=== PATIENT | male | born 2000 | race American Indian/Alaskan Native ===

== ENCOUNTER 2023-09-09 13:28 | Emergency (ER) | payer SELFPAY ==
[2023-09-09] MEDS ORDERED: FOLIC ACID 1 MG, MULTIVITAMINS INJ 10 ML, THIAMINE HCL 100 MG in NA CHLORIDE 0.9% 1,000 ML IV ONE (14:00)
[2023-09-09] MEDS ORDERED: ONDANSETRON 4 MG/2 ML VIAL ONE (14:15)
[2023-09-09 14:18] LABS: Absolute Lymphocytes (CBC) 1.1 K/uL (0.7-4.9); Hematocrit 45.8 % (39.6-49.0); MCV 89.5 fL (80-100); MPV 7.6 fL (7.6-11.3); Platelets 350 thou/uL (152-406); RBC Red Blood Cell Count 5.12 M/uL (4.33-5.43)
[2023-09-09 14:29] LABS: Potassium 3.2 mEq/L (3.5-5.1)
[2023-09-09] MEDS ORDERED: POTASSIUM 25 MEQ EFFERV TAB ONE (14:44)
--- NOTE | 2023-09-09 15:25 | ER ---
Nurse's Notes [facility] Name: Clifford Keith Age: 23 yrs Sex: Male : 2000 Arrival Date: 09/09/2023 Time: 13:28 Bed 8 Private MD: Diagnosis: Nausea with vomiting, unspecified Presentation: 09/09 13:41 Chief complaint: Patient states: has been drinking ETOH X 3 days , can't keep anything iw down today. Coronavirus screen: At this time, the client does not indicate any symptoms associated with coronavirus-19. Ebola Screen: Patient negative for fever greater than or equal to 101.5 degrees Fahrenheit, and additional compatible Ebola Virus Disease symptoms Patient denies exposure to infectious person. Patient denies travel to an Ebola-affected area in the 21 days before illness onset. No symptoms or risks identified at this time. Initial Sepsis Screen: Does the patient meet any 2 criteria? No. Patient's initial sepsis screen is negative. Does the patient have a suspected source of infection? No. Patient's initial sepsis screen is negative. Risk Assessment: Do you want to hurt yourself or someone else? Patient reports no desire to harm self or others. Onset of symptoms was September 09, 2023. 13:41 Method Of Arrival: Ambulatory iw 13:41 Acuity: BECKY 3 iw Historical: - Allergies: 13:42 No Known Allergies; iw - Home Meds: 13:42 None [Active]; iw - PMHx: 13:41 Hypertensive disorder; iw - PSHx: 13:42 None; iw - Immunization history:: Adult Immunizations unknown. - Social history:: Smoking status: Patient denies any tobacco usage or history of. Patient uses alcohol, on a daily basis. 3 tall can of beer on weekdays, liquor on weekends . Screenin:50 [facility] ED Fall Risk Assessment (Adult) History of falling in the last 3 months, ko1 including since admission No falls in past 3 months (0 pts) Confusion or Disorientation No (0 pts) Intoxicated or Sedated No (0 pts) Impaired Gait No (0 pts) Mobility Assist Device Used No (0 pt) Altered Elimination No (0 pt) Score/Fall Risk Level 0 - 2 = Low Risk Oriented to surroundings, Maintained a safe environment, Educated pt \T\ family on fall prevention, incl call for assistance when getting out of bed, Assessed \T\ reinforced patient's understanding of fall precautions, Provided non-skid footwear, Hourly rounding (assess needs \T\ fall precautionary measures) done, Used ambulatory aids as needed (educated on \T\ assisted with), Used gait belt as appropriate. Abuse screen: Denies threats or abuse. Denies injuries from another. Nutritional screening: No deficits noted. Tuberculosis screening: No symptoms or risk factors identified. Assessment: 13:50 General: Appears in no apparent distress. comfortable, Behavior is calm, cooperative, ko1 appropriate for age. Pain: Complains of pain in abdomen. Neuro: No deficits noted. Cardiovascular: No deficits noted. Respiratory: No deficits noted. GI: Bowel sounds present X 4 quads. Abd is soft and non tender X 4 quads. Reports upper abdominal pain, nausea, vomiting. : No deficits noted. EENT: No deficits noted. Derm: No deficits noted. Musculoskeletal: No deficits noted. Vital Signs: 13:41 BP 178 / 110; Pulse 116; Resp 18; Temp 99.1; Pulse Ox 100% on R/A; Weight 81.65 kg; iw Height 5 ft. 10 in. ; 13:50 BP 164 / 98; Pulse 106; Resp 18; Pulse Ox 100% ; ko1 15:42 BP 137 / 88; Pulse 84; Resp 16; Pulse Ox 99% ; ko1 13:41 Body Mass Index 25.83 (81.65 kg, 177.8 cm) iw ED Course: 13:35 Patient arrived in ED. mg5 13:37 [facility] FNP [facility] 7 13:37 Cem Snowden MD is Attending Physician. [facility] 13:41 Triage completed. iw 13:42 Arm band placed on. iw 13:50 Patient has correct armband on for positive identification. Bed in low position. Call ko1 light in reach. Side rails up X 1. Provided Education on: na. Pulse ox on. NIBP on. Door closed. Noise minimized. Lights dimmed. 13:55 Missed attempt(s): 20 gauge in left antecubital area. Bleeding controlled, band aid iw applied, catheter tip intact. 14:00 Inserted saline lock: 18 gauge in right antecubital area, using aseptic technique. iw Blood collected. 14:19 Annelise Moreland, RN is Primary Nurse. ko1 15:42 No provider procedures requiring assistance completed. IV discontinued, intact, ko1 bleeding controlled, No redness/swelling at site. Pressure dressing applied. Administered Medications: 14:06 Drug: Ondansetron IVP 4 mg IVP once; over 2 minutes Route: IVP; Site: right antecubital;ko1 14:35 Drug: Potassium PO Effervescent Tablet 50 mEq PO once; dissolve in 4 ounces of water or ko1 juice Route: PO; 14:45 Drug: Banana Bag - (Multivitamin IV 1 amp, NS 0.9% IV 1000 ml, Thiamine IV 100 mg, ko1 foLIC Acid IVPB 1 mg) IV at calculated rate once Route: IV; Rate: calculated rate; Site: right antecubital; Medication: 15:42 VIS not applicable for this client. ko1 Outcome: 15:[address] ordered [address] . [facility] 15:42 Discharged to home ambulatory, ko1 15:42 Condition: stable 15:42 Discharge instructions given to patient, Instructed on discharge instructions, follow up and referral plans. medication usage, Demonstrated understanding of instructions, follow-up care, medications, Prescriptions given X 1, 15:43 Patient left the ED. ko1 Signatures: Subha Olsen RN RN Robyn Peña, KAREN [place] [id number] Annelise Moreland, RN RN ko1 Yanelis Blakely mg5 Corrections: (The following items were deleted from the chart) 13:42 13:41 BP 178 / 110; Pulse 116bpm; Resp 18bpm; Pulse Ox 100% RA; iw iw 13:44 13:41 Chief complaint: Patient states: has been drinking ETOH X 3 days , can't keep iw anything down today iw
--- NOTE | 2023-09-09 15:25 | EDPHYS ---
Physician Documentation [facility] Name: Clifford Keith Age: 23 yrs Sex: Male : 2000 Arrival Date: 09/09/2023 Time: 13:28 Bed 8 Private MD: ED Physician Cem Snowden HPI: 09/09 13:45 This 23 yrs old Male presents to ER via Ambulatory with complaints of jh7 abdominal cramping, Nausea, vomiting. 13:45 23-year-old male states that he has been drinking alcohol over the past 3 days, and jh7 started vomiting today. Reports that his last drink was at 11 PM. Denies history of alcoholism. History of hypertension. Patient calm and alert in triage.. Historical: - Allergies: 13:42 No Known Allergies; iw - Home Meds: 13:42 None [Active]; iw - PMHx: 13:41 Hypertensive disorder; iw - PSHx: 13:42 None; iw - Immunization history:: Adult Immunizations unknown. - Social history:: Smoking status: Patient denies any tobacco usage or history of. Patient uses alcohol, on a daily basis. 3 tall can of beer on weekdays, liquor on weekends . ROS: 13:45 Constitutional: Negative for fever, chills, and weight loss, Eyes: Negative for injury, jh7 pain, redness, and discharge, Cardiovascular: Negative for chest pain, palpitations, and edema, Respiratory: Negative for shortness of breath, cough, wheezing, and pleuritic chest pain, Back: Negative for injury and pain, MS/Extremity: Negative for injury and deformity, Skin: Negative for injury, rash, and discoloration, Neuro: Negative for headache, weakness, numbness, tingling, and seizure, 13:45 Abdomen/GI: Positive for nausea and vomiting, abdominal cramps, Negative for diarrhea, constipation, 13:45 All other systems are negative, Exam: 13:45 Constitutional: This is a well developed, well nourished patient who is awake, alert, jh7 and in no acute distress. Head/Face: Normocephalic, atraumatic. Neck: Trachea midline, no thyromegaly or masses palpated, and no cervical lymphadenopathy. Supple, full range of motion without nuchal rigidity, or vertebral point tenderness. No Meningismus. Cardiovascular: Regular rate and rhythm with a normal S1 and S2. No gallops, murmurs, or rubs. Normal PMI, no JVD. No pulse deficits. Respiratory: Lungs have equal breath sounds bilaterally, clear to auscultation and percussion. No rales, rhonchi or wheezes noted. No increased work of breathing, no retractions or nasal flaring. Back: No spinal tenderness. No costovertebral tenderness. Full range of motion. Skin: Warm, dry with normal turgor. Normal color with no rashes, no lesions, and no evidence of cellulitis. MS/ Extremity: Pulses equal, no cyanosis. Neurovascular intact. Full, normal range of motion. Neuro: Awake and alert, GCS 15, oriented to person, place, time, and situation. Cranial nerves II-XII grossly intact. Motor strength 5/5 in all extremities. Sensory grossly intact. Cerebellar exam normal. Normal gait. 13:45 Abdomen/GI: Inspection: abdomen appears normal, Bowel sounds: normal, Palpation: abdomen is soft and non-tender, Vital Signs: 13:41 BP 178 / 110; Pulse 116; Resp 18; Temp 99.1; Pulse Ox 100% on R/A; Weight 81.65 kg; iw Height 5 ft. 10 in. ; 13:50 BP 164 / 98; Pulse 106; Resp 18; Pulse Ox 100% ; ko1 15:42 BP 137 / 88; Pulse 84; Resp 16; Pulse Ox 99% ; ko1 13:41 Body Mass Index 25.83 (81.65 kg, 177.8 cm) iw MDM: 13:37 Patient medically screened. [facility] 15:36 Differential diagnosis: Nausea and vomiting secondary to EtOH consumption. Data [facility] reviewed: vital signs, nurses notes, lab test result(s). I considered the following discharge prescriptions or medication management in the emergency department Medications were administered in the Emergency Department. See MAR. Care significantly affected by the following chronic conditions: Hypertension. Counseling: I had a detailed discussion with the patient and/or guardian regarding the historical points, exam findings, and any diagnostic results supporting the discharge/admit diagnosis, to return to the emergency department if symptoms worsen or persist or if there are any questions or concerns that arise at home. Response to treatment: the patient's symptoms have markedly improved after treatment. 09/09 13:43 Order name: CBC with Diff; Complete Time: 14:29 [facility] 09/09 13:43 Order name: BMP; Complete Time: 14:29 7 Administered Medications: 14:06 Drug: Ondansetron IVP 4 mg IVP once; over 2 minutes Route: IVP; Site: right antecubital;ko1 14:35 Drug: Potassium PO Effervescent Tablet 50 mEq PO once; dissolve in 4 ounces of water or ko1 juice Route: PO; 14:45 Drug: Banana Bag - (Multivitamin IV 1 amp, NS 0.9% IV 1000 ml, Thiamine IV 100 mg, ko1 foLIC Acid IVPB 1 mg) IV at calculated rate once Route: IV; Rate: calculated rate; Site: right antecubital; Disposition: 16:23 Co-signature as Attending Physician, Cem Snowden MD I reviewed the patient's care rn provided by the Advanced Practice Provider and agree with the diagnosis and treatment plan. Disposition Summary: 09/09/23 15:24 Discharge Ordered Notes: Location: Home [facility] Problem: new [facility] Symptoms: have improved [facility] Condition: Stable [facility] Diagnosis - Nausea with vomiting, unspecified [facility] Followup: [facility] - With: Private Physician - When: 2 - 3 days - Reason: Recheck today's complaints Discharge Instructions: - Discharge Summary Sheet [facility] - Nausea and Vomiting, Adult [facility] Forms: - Medication Reconciliation Form [facility] - Thank You Letter [facility] - Patient Portal Instructions [facility] - Leadership Thank You Letter [facility] - Work release form ko1 Prescriptions: - ondansetron 4 mg Oral Tablet,disintegrating - take 1 tablet ORAL route every 4-6 hours As needed; 20 tablet; Refills: 0, [facility] Product Selection Permitted Signatures: Dispatcher [employer] Subha Weiner, RN KARIN Cem Snowden MD MD rn Hadash, Jennifer, WINTERIZER [place] [id number] Annelise Moreland RN RN ko1
[2023-09-09 15:51] VITALS: BP 164/98; O2SAT 100
[2023-09-09 15:53] VITALS: TEMP 99.1
== END 2023-09-09 15:43 | disposition home or self-care (01) ==
LOC: ER 13:28
DX: R11.2 Nausea with vomiting, unspecified (principal)
CPT/HCPCS: 36415; 80048; 85025; 96374; 96375; 99284; J2405; J3411; J7030